=== PATIENT | male | born 1995 | race Caucasian/White ===

== ENCOUNTER 2022-02-18 12:05 | Emergency (ER) | payer OTHER, SELFPAY ==
[2022-02-18 12:08] VITALS: BP 107/74; PULSE 103; RESP 18; TEMP 36.1; O2SAT 95; BMI 33.4
--- NOTE | 2022-02-18 12:23 | EX.ED.UPPERE ---
HPI History of Present Illness Chief Complaint: Upper Extremity Injury Informant: patient Occured/Mechanism Mechanism/Context: Yes puncture wound and Yes work related Onset/Context/Timing Onset: Hours Context: Sudden Onset Timing: Intermittent Current Severity: Puncture wound radial side of left index finger with exit wound palm Maximum Severity: Moderate Associated Symptoms Associated Symptoms: Negative for Parasthesia, Weakness and Loss of Funtion Narrative Narrative: Patient presents because of puncture wound with entry radial side left index finger between the MCP joint and PIP joint. There is an exit wound 1 cm proximal the third MCP joint on the volar surface. Tetanus status unknown. He denies paresthesia, anesthesia medics. He denies loss of function. Tetanus Immunization: Unknown Prior similar symptoms: No Recent Illness/Hospitalization: No PFSH PFSH Medical History no medical history Home Medications cephalexin 500 mg PO Q12 #10 capsule 02/18/22 [Rx Last Taken Unknown] Allergy/AdvReac Type Severity Reaction Status Date / Time No Known Allergies Allergy Verified 02/18/22 12:08 Social History (Updated 02/18/22 @ 12:[address] Dave Blackburn MD) household members: spouse Smoking Status: Never smoker substance use type: does not use ROS ROS ED Musculoskeletal Musculoskeletal: Denies back pain, myalgias or neck pain Integumentary Reports other Details: Puncture wound previously described ; Denies abscess, Abrasions or rash Neurologic Neurologic: Denies paresthesias or weakness Hematologic/Lymphatic Hematologic/Lymphatic: Denies easy bleeding, easy bruising or lymphadenopathy EXAM Physical Exam Const Vital Signs: 02/18/22 12:08 Temperature 97 F L Temperature Source Temporal Pulse Rate 103 H Respiratory Rate 18 Blood Pressure 107/74 Blood Pressure Mean 85 Pulse Ox 95 Oxygen Delivery Method Room Air Positive well nourished, well developed and obese General Appearance ED: well developed and NAD Nutritional Appearance: obese HEENT normocephalic and atraumatic Eyes PERRL and EOMs intact bilaterally Neck supple Resp normal respiratory effort Cardio regular rate and regular rhythm Extremity full ROM; Negative for normal to inspection Extremity Narrative: Puncture wound radial side of the left index finger and exit wound palm as previously described. Median, radial and ulnar function intact. The extensor Insite tendon is functionally intact. The flexor digitorum superficialis and flexor determine profundus are intact for the index and long finger. Capillary refill is normal. Sensation is normal. Neuro oriented x3, CN's II-XII intact bilaterally and no sensory deficits noted Sensorium / Orientation: alert Motor Exam: strength 5/5 throughout Psych mental status grossly normal Skin Lesions: no lesions Rashes: no rashes Trauma: puncture; Negative for no lacerations or abrasions MDM MDM MDM Narrative Medical decision making narrative: Rotate x-ray to assess for retained foreign body or injury to the phalanx/metacarpal bones. Tetanus was updated. Wound care per nursing staff. Radiography Diagnostic Testing: Three-view x-ray of the left hand reveals no foreign body or fracture. The x-ray was independently interpreted by me at 1250. Discharge Plan Triage Chief Complaint: Upper Extremity Injury ED Provider: Daev Blackburn Dx/Rx/DC Orders Clinical Impression: Puncture wound of hand, left, Puncture wound of left index finger without foreign body without damage to nail Instructions: ED Puncture Wound (General) Prescriptions: New cephalexin [cephalexin] 500 MG capsule 500 mg PO Q12 Qty: 10 RF: 0 Primary Care Provider: Care Physician,No Primary Referrals: [facility] [GROUP OF PHYSICIANS] - 2 Days for wound check Care Physician,No Primary [Primary Care Provider] - Disposition Disposition: Home, Self Care
[2022-02-18] MEDS: Diphth,Pertuss(Acell),Tet Vac 0.5 ML Vial IM (12:27)
--- NOTE | 2022-02-18 12:35 | RAD_ITS ---
STUDY: X-RAY - LEFT HAND REASON FOR EXAM: Male, 26 years old. Injury/Pain TECHNIQUE: 3 view(s) of the hand. COMPARISON: None. FINDINGS: Normal radiocarpal articulation. Normal distal radioulnar joint. Normal visualized carpal bones. Normal carpal articulations Normal carpometacarpal articulation of the thumb. Normal second through fifth carpometacarpal joints. Normal metacarpi. Normal metacarpophalangeal joint of the thumb. Normal interphalangeal joint of the thumb. Normal proximal and distal phalanges of the thumb. Normal metacarpophalangeal joints of the second through fifth fingers. Normal proximal and distal interphalangeal joints of the second through fifth fingers. Normal phalanges of the second through fifth fingers. The soft tissue structures are unremarkable. RAD/Hand Min 3 Views IMPRESSION: Normal x-ray examination of the hand. Electronically Signed: Hilda Guardado MD at 12:55 EDT ,
[2022-02-18 13:10] VITALS: BP 126/78; PULSE 62; RESP 14; TEMP 36.9; O2SAT 97
== END 2022-02-18 13:11 | disposition home or self-care (01) ==
PROVIDERS: Emergency Provider Emergency Medicine; Visit Provider Emergency Medicine
DX: S61.432A Puncture wound without foreign body of left hand, initial encounter (principal); S61.231A Puncture wound without foreign body of left index finger without damage to nail, initial encounter; W26.8XXA Contact with other sharp object(s), not elsewhere classified, initial encounter; Y99.0 Civilian activity done for income or pay; Z23 Encounter for immunization; E66.9 Obesity, unspecified
CPT/HCPCS: 73130; 90471; 90715; 99282